=== PATIENT | female | born 1960 | race Caucasian/White ===

== ENCOUNTER 2021-08-13 14:12 | Emergency (ER) | payer BC ==
[~2021-08-13] VITALS: Ht 162.6 cm; Wt 63.5 kg
[2021-08-13] MEDS ORDERED: DELSYM30 MG/5 ML PO (16:38)
== END 2021-08-13 17:22 | disposition home or self-care (01) ==
LOC: ER1 14:12
DX: U07.1 COVID-19 (principal); E78.5 Hyperlipidemia, unspecified
CPT/HCPCS: 99283; M0243